=== PATIENT | female | born 1960 | race Hispanic/Latino ===

== ENCOUNTER → 2021-11-14 | Emergency (ER) | payer BC ==
[~2021-11-14] VITALS: Ht 162.6 cm; Wt 73.0 kg
[2021-11-14 20:36] VITALS: BP 146/95
== END | disposition left against medical advice (07) ==
LOC: EDH 20:11
DX: R10.9 Unspecified abdominal pain (principal); R19.7 Diarrhea, unspecified; Z53.21 Procedure and treatment not carried out due to patient leaving prior to being seen by health care provider

== ENCOUNTER 2022-09-28 16:39 | Emergency (ER) | payer BC ==
[~2022-09-28] VITALS: Ht 160 cm; Wt 72.6 kg
[2022-09-28 17:12] LABS: BASOPHILS % (AUTO) 0.3 % (0.0-5.0); EOSINOPHILS % (AUTO) 0.9 % (0.0-8.0); LYMPHOCYTES % (AUTO) 11.8 % (21.0-51.0); MEAN CORPUSCULAR HEMOGLOBIN 33.3 pg (27.0-33.0); MEAN CORPUSCULAR HGB CONC 34.4 g/dL (32.0-36.0); MEAN CORPUSCULAR VOLUME 96.6 fL (79-99); MONOCYTES % (AUTO) 5.7 % (3.0-13.0); NEUTROPHILS % (AUTO) 80.9 % (40.0-77.0); PLATELET COUNT (AUTO) 225 K/uL (130-400); RED BLOOD CELL COUNT(AUTO) 4.45 MIL/uL (4.00-5.50); RED CELL DISTRIBUTION WIDTH 13.2 % (11.0-15.5); WHITE BLOOD COUNT (AUTO) 9.2 K/uL (4.8-10.8)
[2022-09-28 17:25] LABS: CREATININE 0.9 mg/dL (0.5-1.5); POTASSIUM 3.6 mmol/L (3.5-5.1)
[2022-09-28 17:30] LABS: ALBUMIN 4.1 g/dL (3.5-5.0)
[2022-09-28 19:45] LABS: MAGNESIUM 2.3 mg/dL (1.80-2.40)
[2022-09-28 21:19] LABS: APPEARANCE,URINE CLEAR (CLEAR); BILIRUBIN,URINE NEGATIVE (NEGATIVE); COLOR,URINE COLORLESS (YELLOW); GLUCOSE, URINE (UA) NEGATIVE (NEGATIVE); KETONES,URINE NEGATIVE (NEGATIVE); LEUKOCYTE ESTERASE ,URINE 500 Leu/uL (NEGATIVE); NITRATE,URINE NEGATIVE (NEGATIVE); OCCULT BLOOD,URINE NEGATIVE (NEGATIVE); PH,URINE 6.5 (5.0-8.0); PROTEIN,URINE NEGATIVE (NEGATIVE); UROBILINOGEN,URINE 0.2 mg/dL (0.2-1.0)
[2022-09-28 21:21] LABS: BACTERIA,URINE RARE /HPF (None Seen); SQUAMOUS EPITHELIAL CELL,UR RARE /HPF (0-2)
[2022-09-28] MEDS ORDERED: CEFTRIAXONE 1G VIAL ONE (22:17)
[2022-09-28] MEDS ORDERED: CEFTRIAXONE 1G VIAL IVPB ONE (22:30)
[2022-09-28] MEDS ORDERED: CEFU500T67 PO (23:05)
[2022-09-28] MEDS ORDERED: NITR0.3T11 SL (23:05)
[2022-09-28 23:19] VITALS: BP 122/83
== END 2022-09-28 23:29 | disposition home or self-care (01) ==
LOC: EDH 16:39
DX: N39.0 Urinary tract infection, site not specified (principal); R07.89 Other chest pain; E03.9 Hypothyroidism, unspecified; E11.9 Type 2 diabetes mellitus without complications; E78.00 Pure hypercholesterolemia, unspecified; I10 Essential (primary) hypertension; M19.90 Unspecified osteoarthritis, unspecified site; Z95.1 Presence of aortocoronary bypass graft; I25.2 Old myocardial infarction
CPT/HCPCS: 99284; 96365; 71045; 82550; 83735; 84484 ×2; 80053; 83880; 85025; 85378; 87088; 81001; 36415; 93005; J0696